=== PATIENT | male | born 1945 ===

== ENCOUNTER → 2016-12-07 | Day surgery (SDC) | payer MEDICARE, BC ==
[~2016-12-07] VITALS: Ht 188 cm; Wt 72.6 kg
[~2016-12-07] MED LIST: LR 1000ml 1,000 ML IVLG SCH
== END | disposition home or self-care (01) ==
LOC: GAS 10:25
DX: K21.9 Gastro-esophageal reflux disease without esophagitis (principal); Z53.09 Procedure and treatment not carried out because of other contraindication